=== PATIENT | female | born 1970 | race Two or more races ===

== ENCOUNTER 2019-09-18 21:07 | Emergency (ER) | payer OTHER ==
[~2019-09-18] VITALS: Ht 167.6 cm; Wt 74.8 kg
[2019-09-18 21:25] VITALS: BP 127/60
--- NOTE | 2019-09-18 21:25 | NUR ---
ED Nurse Note: Pt ambulated into ED from home CO chest discomfort but denies chest pain. Pt reports that she felt as if her heart had suddenly "become huge" and that she could "feel her heart in her chest." Pt reports that she had trouble breathing during the episode and reports loss of sensation in right arm. Pt denies previous medical hx. Pt reports consuming alcohol last night but denies frequent consumption. Pt denies hx of smoking. VSS, no s/s of distress noted. Awaiting ERMD at bedside
--- NOTE | 2019-09-18 21:25 | Emergency Room Report ---
History of Present Illness General Chief Complaint: Chest Pain Source: Patient Present Illness HPI Disclaimer: Please note that this report is being documented using DRAGON technology. This can lead to erroneous entry secondary to incorrect interpretation by the dictating instrument. HPI: 49-year-old female with no reported medical history presents for evaluation of palpitations. Symptoms began this morning. She has intermittently been feeling a rapid heart rate and palpitations throughout the day. Noted some lightheadedness without syncope. Reported nausea but no vomiting. Reported feeling intermittently warm and some numbness and tingling in her hands as well. Currently complaining of some tingling in her fingers as well as a tense feeling all over. Denies a history of anxiety and takes no anxiolytic medications. Denies any recent stressors. She was drinking alcohol yesterday but denies any today. Denies drug use or tobacco use. Denies back pain, recent fever, chills, dysuria, hematuria, diarrhea. PMH: Denies PSH: Denies Allergies: Denies Social Hx: Social alcohol use Allergies: Coded Allergies: No Known Allergies (Unverified , 09/18/19) Patient History Now: No Nursing Documentation-PMH Past Medical History: No Stated History Review of Systems All Other Systems: negative except mentioned in HPI Physical Exam Vital Signs Date Time Temp Pulse Resp B/P (MAP) Pulse Ox O2 Delivery O2 Flow Rate FiO2 09/18/19 21:17 97.9 70 14 127/60 (82) 99 Room Air General: Awake and alert, no acute distress HEENT: NC/AT. EOMI. Neck: Supple, trachea midline Chest Wall: No tenderness, no deformity Cardiovascular: RRR. S1 and S2 normal. No murmur appreciated Resp: Normal work of breathing. No cough, wheezing or crackles appreciated Abdomen: Abdomen is soft, nondistended. Nontender Skin: Intact. No abrasions, laceration or rash over the exposed skin MSK: Normal tone and bulk. Moving all extremities. No obvious deformity. Neuro: Awake and alert. Mentating appropriately. Sensation is intact over the upper and lower extremities bilaterally. Medical Decision Making Diagnostic Impression: Primary Impression: Palpitations ER Course 49-year-old female presents for evaluation of palpitations. Differential includes was not limited to arrhythmia, palpitations, ACS, angina, anxiety, dehydration, alcohol withdrawal. She is well-appearing arrives stable vital signs. Will obtain EKG, chest x-ray, labs including cardiac enzymes. Will treat with anxiolytics and monitor for improvement. Overall she has few risk factors for cardiovascular disease. Laboratory Tests Test 09/18/19 21:41 White Blood Count 6.1 K/UL (4.8-10.8) Red Blood Count 3.59 M/UL (4.20-5.40) L Hemoglobin 11.0 G/DL (12.0-16.0) L Hematocrit 33.5 % (37.0-47.0) L Mean Corpuscular Volume 94 FL (80-99) Mean Corpuscular Hemoglobin 30.6 PG (27.0-31.0) Mean Corpuscular Hemoglobin Concent 32.7 G/DL (32.0-36.0) Red Cell Distribution Width 14.6 % (11.6-14.8) Platelet Count 238 K/UL (150-450) Mean Platelet Volume 8.5 FL (6.5-10.1) Neutrophils (%) (Auto) 63.4 % (45.0-75.0) Lymphocytes (%) (Auto) 24.9 % (20.0-45.0) Monocytes (%) (Auto) 9.2 % (1.0-10.0) Eosinophils (%) (Auto) 1.8 % (0.0-3.0) Basophils (%) (Auto) 0.7 % (0.0-2.0) Sodium Level 141 MMOL/L (136-145) Potassium Level 3.6 MMOL/L (3.5-5.1) Chloride Level 104 MMOL/L (98-107) Carbon Dioxide Level 25 MMOL/L (21-32) Anion Gap 12 mmol/L (5-15) Blood Urea Nitrogen 14 mg/dL (7-18) Creatinine 0.8 MG/DL (0.55-1.30) Estimate Glomerular Filtration Rate > 60 mL/min (>60) Glucose Level 99 MG/DL (74-106) Calcium Level 8.7 MG/DL (8.5-10.1) Total Bilirubin 0.5 MG/DL (0.2-1.0) Aspartate Amino Transferase (AST) 16 U/L (15-37) Alanine Aminotransferase (ALT) 18 U/L (12-78) Alkaline Phosphatase 57 U/L (46-116) Troponin I 0.000 ng/mL (0.000-0.056) Total Protein 6.8 G/DL (6.4-8.2) Albumin 3.6 G/DL (3.4-5.0) Globulin 3.2 g/dL Albumin/Globulin Ratio 1.1 (1.0-2.7) EKG Diagnostic Results EKG Time: 21:53 Rate: normal Rhythm: NSR ST Segments: no acute changes Other Impression Sinus rhythm, normal axis, normal intervals, no ST segment changes Rhythm Strip Diag. Results Rhythm Strip Time: 21:53 EP Interpretation: yes Rate: 70s Rhythm: NSR, no PVC's, no ectopy Chest X-Ray Diagnostic Results Chest X-Ray Diagnostic Results : Chest X-Ray Ordered: Yes # of Views/Limited/Complete: 1 View Indication: Chest Pain EP Interpretation: Yes Interpretation: no consolidation, no effusion, no pneumothorax Impression: No acute disease Electronically Signed by: Electronically signed by Dr. Mumtaz Byrd Reevaluation Time: 22:26 Last Vital Signs Date Time Temp Pulse Resp B/P (MAP) Pulse Ox O2 Delivery O2 Flow Rate FiO2 09/18/19 21:17 97.9 70 14 127/60 (82) 99 Room Air Reevaluation Impression EKG and chest x-ray are unremarkable. Labs are within normal limits. Cardiac enzymes are negative. Patient is feeling returned to baseline and significant improved after receiving a small dose of Ativan. May be dehydration, symptoms of alcohol use or undiagnosed anxiety. She has few risk factors for cardiac disease aside from her age and heart score is low. She is safe for outpatient follow-up. Will follow-up with PMD. Encouraged to return to the emergency department new or worsening symptoms. She understands and agrees with this treatment plan. Will be discharged home. Disposition: HOME, SELF-CARE Condition: Stable Mumtaz Byrd MD Sep 18, 2019 21:25
[2019-09-18] MEDS ORDERED: LORazepam Inj 2mg/ml 1ml IV ONE (21:30)
--- NOTE | 2019-09-18 21:30 | NUR ---
ED Nurse Note: ERMD at bedside
--- NOTE | 2019-09-18 21:32 | NUR ---
ED Nurse Note: All blood work drawn and sent to lab.
--- NOTE | 2019-09-18 21:35 | NUR ---
ED Nurse Note: all medications administered, pt tolerated well. no adverse reactions noted. Pt resting in bed
[2019-09-18 21:59] LABS: BASOPHILS % (AUTO) 0.7 % (0.0-2.0); EOSINOPHILS % (AUTO) 1.8 % (0.0-3.0); HEMATOCRIT 33.5 % (37.0-47.0); LYMPHOCYTES % (AUTO) 24.9 % (20.0-45.0); MEAN CORPUSCULAR VOLUME 94 FL (80-99); MONOCYTES % (AUTO) 9.2 % (1.0-10.0); NEUTROPHILS % (AUTO) 63.4 % (45.0-75.0); PLATELET COUNT 238 K/UL (150-450); RED BLOOD COUNT 3.59 M/UL (4.20-5.40); RED CELL DISTRIBUTION WIDTH 14.6 % (11.6-14.8); WHITE BLOOD COUNT 6.1 K/UL (4.8-10.8)
[2019-09-18 22:06] LABS: ANION GAP 12 mmol/L (5-15); BLOOD UREA NITROGEN 14 mg/dL (7-18); CALCIUM 8.7 MG/DL (8.5-10.1); CARBON DIOXIDE 25 MMOL/L (21-32); CHLORIDE 104 MMOL/L (98-107); CREATININE 0.8 MG/DL (0.55-1.30); POTASSIUM 3.6 MMOL/L (3.5-5.1); SODIUM 141 MMOL/L (136-145)
[2019-09-18 22:12] LABS: ALANINE AMINOTRANSFERASE 18 U/L (12-78); ALBUMIN 3.6 G/DL (3.4-5.0); ALBUMIN/GLOBULIN RATIO 1.1 (1.0-2.7); ALKALINE PHOSPHATASE 57 U/L (46-116); ASPARTATE AMINO TRANSFERASE 16 U/L (15-37); BILIRUBIN,TOTAL 0.5 MG/DL (0.2-1.0)
--- NOTE | 2019-09-18 22:20 | Diagnostic Imaging Report ---
EXAM: XR Chest, 1 View CLINICAL HISTORY: CP TECHNIQUE: Frontal view of the chest. COMPARISON: No relevant prior studies available. FINDINGS: Lungs: Unremarkable. No consolidation. Pleural space: Unremarkable. No pneumothorax. Heart: Unremarkable. No cardiomegaly. Mediastinum: Unremarkable. Bones/joints: Unremarkable. IMPRESSION: Unremarkable portable chest x-ray
[2019-09-18 22:40] VITALS: BP 125/65
--- NOTE | 2019-09-18 22:40 | NUR ---
ER DISCHARGE NOTE: Patient is cleared to be discharged home per ERMD, pt is aox4, on room air, with stable vital signs. pt was given dc and prescription instructions, pt was able to verbalize understanding, pt id band and iv site removed without complications. pt is able to ambulate with steady gait. pt took all belongings.
== END 2019-09-18 22:40 | disposition home or self-care (01) ==
LOC: EMR 22:40
DX: R00.2 Palpitations (principal)
CPT/HCPCS: 36415; 71045; 80053; 84484; 85025; 93005; 96374; Z7502; 99284